=== PATIENT | female | born 1950 | race American Indian/Alaskan Native ===

== ENCOUNTER 2018-12-04 22:24 | Observation (INO) | payer MEDICARE ==
[2018-12-04] MEDS ORDERED: ONDANSETRON 4 MG/2 ML INJ IV ONE ×2 (22:48→22:49)
[2018-12-04] MEDS ORDERED: SODIUM CHLORIDE 0.9% 1000 ML 1,000 ML IV ONE (22:48)
--- NOTE | 2018-12-04 22:56 | Emergency Department Report ---
ED N/V/D HPI - General Chief complaint: Nausea/Vomiting/Diarrhea Stated complaint: N/V Time Seen by Provider: 12/04/18 22:37 Source: patient, EMS Mode of arrival: Stretcher Limitations: No Limitations - History of Present Illness Initial comments: Patient is 67 years old female with history of CHF, hypertension and substance abuse. Patient brought to the emergency room via EMS for evaluation of nausea and vomiting and shortness of breath. Patient is following with her methadone clinic. Patient stated that she missed her dose yesterday and she used heroin last night and since then she's been having nausea and vomiting and SOB. Patient initial BP was 220/104. patient denied any chest pain. MD complaint: nausea, vomiting -: This morning - Related Data Previous Rx's Medication Instructions Recorded Last Taken Type Aspirin [Aspirin BABY CHEW TAB] 81 mg PO QDAY #30 tab.chew 12/06/18 Unknown Rx Carvedilol [Coreg] 20 mg PO BID #60 tablet 12/06/18 Unknown Rx Furosemide [Lasix TAB] 50 mg PO BID #60 tablet 12/06/18 Unknown Rx Lisinopril [Zestril TAB] 50 mg PO QDAY #30 tablet 12/06/18 Unknown Rx Nicotine [Habitrol] 14 mg TD QDAY #7 patch 12/06/18 Unknown Rx amLODIPine [Norvasc] 10 mg PO QDAY #30 tablet 12/06/18 Unknown Rx hydrALAZINE [Apresoline TAB] 100 mg PO TID #90 tab 12/06/18 Unknown Rx Allergies Allergy/AdvReac Type Severity Reaction Status Date / Time No Known Allergies Allergy Unverified 12/04/18 22:48 ED Review of Systems ROS: Stated complaint: N/V Other details as noted in HPI Comment: All other systems reviewed and negative Constitutional: denies: chills, fever Respiratory: denies: cough, shortness of breath, SOB with exertion, wheezing Cardiovascular: denies: chest pain, palpitations Gastrointestinal: nausea, vomiting. denies: abdominal pain Musculoskeletal: denies: back pain Neurological: denies: headache ED Past Medical Hx - Social History Smoking Status: Current Some Day Smoker Substance Use Type: Heroin - Medications Home Medications: Home Medications Medication Instructions Recorded Confirmed Last Taken Type Aspirin [Aspirin BABY CHEW TAB] 81 mg PO QDAY #30 tab.chew 12/06/18 Unknown Rx Carvedilol [Coreg] 20 mg PO BID #60 tablet 12/06/18 Unknown Rx Furosemide [Lasix TAB] 50 mg PO BID #60 tablet 12/06/18 Unknown Rx Lisinopril [Zestril TAB] 50 mg PO QDAY #30 tablet 12/06/18 Unknown Rx Nicotine [Habitrol] 14 mg TD QDAY #7 patch 12/06/18 Unknown Rx amLODIPine [Norvasc] 10 mg PO QDAY #30 tablet 12/06/18 Unknown Rx hydrALAZINE [Apresoline TAB] 100 mg PO TID #90 tab 12/06/18 Unknown Rx ED Physical Exam - General Limitations: No Limitations General appearance: alert, in no apparent distress - Head Head exam: Present: atraumatic, normocephalic, normal inspection - Eye Eye exam: Present: normal appearance, PERRL - ENT ENT exam: Present: mucous membranes dry - Neck Neck exam: Present: normal inspection, full ROM. Absent: tenderness, meningismus, lymphadenopathy, thyromegaly - Respiratory Respiratory exam: Present: normal lung sounds bilaterally - Cardiovascular Cardiovascular Exam: Present: regular rate, normal rhythm, systolic murmur - GI/Abdominal GI/Abdominal exam: Present: soft, normal bowel sounds. Absent: distended, tenderness, guarding, rebound, rigid, organomegaly, mass, bruit, pulsatile mass, hernia - Extremities Exam Extremities exam: Present: normal inspection, full ROM. Absent: pedal edema, calf tenderness - Back Exam Back exam: Present: normal inspection, full ROM. Absent: CVA tenderness (R), CVA tenderness (L) - Neurological Exam Neurological exam: Present: alert, oriented X3, CN II-XII intact - Psychiatric Psychiatric exam: Present: normal mood - Skin Skin exam: Present: warm, intact, normal color ED Course Vital Signs 12/04/18 12/04/18 12/04/18 22:39 22:41 23:00 Temperature 98.1 F 98.1 F Pulse Rate 72 72 81 Respiratory 16 16 Rate Blood Pressure 205/89 201/102 Blood Pressure 220/104 [Left] O2 Sat by Pulse 100 100 Oximetry 12/04/18 12/04/18 12/04/18 23:38 23:43 23:49 Temperature Pulse Rate 70 70 Respiratory 15 Rate Blood Pressure 215/91 Blood Pressure 206/86 [Left] O2 Sat by Pulse 98 Oximetry 12/05/18 12/05/18 12/05/18 00:12 00:52 03:41 Temperature Pulse Rate 73 61 70 Respiratory 15 10 L Rate Blood Pressure 182/77 Blood Pressure 194/85 150/84 [Left] O2 Sat by Pulse 100 Oximetry 12/05/18 03:48 Temperature Pulse Rate 73 Respiratory 16 Rate Blood Pressure Blood Pressure 155/71 [Left] O2 Sat by Pulse 100 Oximetry ED Medical Decision Making - Lab Data Result diagrams: 12/06/18 03:41 12/06/18 03:41 - EKG Data -: EKG Interpreted by Me EKG shows normal: sinus rhythm Rate: normal - EKG Data Interpretation: no acute changes - Radiology Data Radiology results: report reviewed - Medical Decision Making Patient is 67 years old female with history of CHF, hypertension and substance abuse. Patient brought to the emergency room via EMS for evaluation of nausea and vomiting and shortness of breath. Patient is following with her methadone clinic. Patient stated that she missed her dose yesterday and she used heroin last night and since then she's been having nausea and vomiting and SOB. Patient initial BP was 220/104. patient denied any chest pain. Patient received labetalol and hydralazine. Blood pressure improved but patient still stating that she is having some shortness of breath. Chest x-ray showed bilateral pleural effusion and pulmonary edema. Patient received Lasix 40 mg IV. Initial troponin is slightly elevated but trended down. I discussed the patient with Dr. Gail Saavedra, she agreed to admit the patient to medical service. Critical Care Time: Yes Critical care time in (mins) excluding proc time.: 30 Critical care attestation.: If time is entered above; I have spent that time in minutes in the direct care of this critically ill patient, excluding procedure time. ED Disposition Clinical Impression: CHF exacerbation, Malignant hypertension, Polysubstance abuse, Nausea & vomiting Disposition: -09 OP ADMIT IP TO THIS HOSP Is pt being admited?: Yes Condition: Good
[2018-12-04 23:36] LABS: Basophils % (Auto) 0.4 % (0.0-1.8); Eosinophils % (Auto) 0.1 % (0.0-4.3); Hematocrit 40.8 % (30.3-42.9); Hemoglobin 13.2 gm/dl (10.1-14.3); Lymphocytes # (Auto) 1.2 K/mm3 (1.2-5.4); Lymphocytes % (Auto) 17.2 % (13.4-35.0); Mean Corpuscular HGB Conc 32 % (30-34); Mean Corpuscular Volume 90 fl (79-97); Monocytes # (Auto) 0.3 K/mm3 (0.0-0.8); Monocytes % (Auto) 4.8 % (0.0-7.3); Red Blood Count 4.51 M/mm3 (3.65-5.03); Red Cell Distribution Width 14.3 % (13.2-15.2)
[2018-12-04 23:38] LABS: Platelet Count 99 K/mm3 (140-440)
[2018-12-04 23:43] LABS: Alanine Aminotransferase 23 units/L (7-56); Albumin 4.3 g/dL (3.9-5); BUN/Creatinine Ratio 16; Bilirubin,Direct 0.3 mg/dL (0-0.2); Blood Urea Nitrogen 16 mg/dL (7-17); Hemolysis Index 4
[2018-12-04] MEDS ORDERED: hydrALAZINE 20 MG/1 ML INJ IV ONE (23:45)
[2018-12-04 23:53] LABS: Bacteria,Urine 1+ /HPF (Negative); Bilirubin,Urine NEG (Negative); Blood,Urine MOD (Negative); Color,Urine Straw (Yellow); Urobilinogen,Urine < 2.0 mg/dL (<2.0)
[2018-12-05] LABS: Amphetamine Screen,Urine PRESUMPTIVE NEGATIVE; Benzodiazepines Screen,Urine PRESUMPTIVE NEGATIVE; Cannabinoid Screen,Urine PRESUMPTIVE NEGATIVE
[2018-12-05 00:36] LABS: Cocaine Screen,Urine PRESUMPTIVE POSITIVE; Methadone Screen,Urine PRESUMPTIVE POSITIVE; Opiate Screen,Urine PRESUMPTIVE POSITIVE
[2018-12-05 02:18] LABS: Chol/HDL Ratio 2.92 %
[2018-12-05] MEDS ORDERED: FUROSEMIDE 40 MG/4 ML INJ IV ONE (02:33)
[2018-12-05] MEDS ORDERED: ALBUTEROL 2.5 MG/3 ML NEBU IH PRN (02:54)
[2018-12-05] MEDS ORDERED: ACETAMINOPHEN 325 MG TAB PO PRN (02:54)
[2018-12-05] MEDS ORDERED: METOCLOPRAMIDE 10 MG/2 ML INJ IV PRN (02:54)
--- NOTE | 2018-12-05 03:13 | XRay Report ---
CHEST 1 VIEW 12/05/2018 2:15 AM INDICATION / CLINICAL INFORMATION: Shortness of breath. COMPARISON: None available. FINDINGS: SUPPORT DEVICES: None. HEART / MEDIASTINUM: Normal heart size. Atherosclerosis in the thoracic aorta. LUNGS / PLEURA: No significant pulmonary or pleural abnormality. No pneumothorax. ADDITIONAL FINDINGS: No significant additional findings. IMPRESSION: 1. No acute findings. Signer Name: Rancho Ferreira MD Signed: 12/05/2018 3:08 AM Workstation Name: [employer]
--- NOTE | 2018-12-05 03:34 | History and Physical Report ---
<RONNIE HUTSON - Last Filed: 12/05/18 03:25> History of Present Illness Date of examination: 12/05/18 Date of admission: 12/05/2018 Chief complaint: Nausea and vomiting History of present illness: 67-year-old -[place] female with history of substance abuse, hypertension, CHF who presents to [facility] ED with complaints of nausea and vomiting for the past 2 days. Patient states that she has been on able to keep anything down for the past 2 days. Pt also complains of shortness of breath that began on presentation to the ED. She states, " I guess I must have been throwing up so much that I didn't realize I was short of breath before". Pt states that she has not been to the methadone clinic in the past 2 days due to her nausea and vomiting, and decided to take some heroin. She thought that she was going through withdrawal and was hoping that the heroin would help alleviate her symptoms. Denies: Cough, fever, hematemesis, or recent sick contact Past History Past Medical History: heart failure, hypertension, other (poly substance abuse) Social history: Lives alone, smoking Family history: no significant family history Medications and Allergies Allergies Allergy/AdvReac Type Severity Reaction Status Date / Time No Known Allergies Allergy Unverified 12/04/18 22:48 Home Medications Medication Instructions Recorded Confirmed Last Taken Type Carvedilol [Coreg] 20 mg PO BID 12/05/18 12/05/18 Unknown History Furosemide [Lasix TAB] 50 mg PO BID 12/05/18 12/05/18 Unknown History Lisinopril [Zestril TAB] 50 mg PO QDAY 12/05/18 12/05/18 Unknown History Active Meds: Active Medications Acetaminophen (Tylenol) 650 mg PO Q4H PRN PRN Reason: Pain MILD(1-3)/Fever >100.5/SHANE Albuterol (Proventil) 2.5 mg IH Q3HRT PRN PRN Reason: Shortness Of Breath Docusate Sodium (Colace) 100 mg PO BID JU Enoxaparin Sodium (Lovenox) 40 mg SUB-Q QDAY JU Metoclopramide HCl (Reglan) 10 mg IV Q6H PRN PRN Reason: Nausea And Vomiting Nicotine (Habitrol) 14 mg TD QDAY JU Ondansetron HCl (Zofran) 4 mg IV Q6H PRN PRN Reason: Nausea And Vomiting Sodium Chloride (Sodium Chloride Flush Syringe 10 Ml) 10 ml IV BID JU Sodium Chloride (Sodium Chloride Flush Syringe 10 Ml) 10 ml IV PRN PRN PRN Reason: LINE FLUSH Review of Systems All systems: negative Cardiovascular: shortness of breath, high blood pressure, leg edema (R>L) Gastrointestinal: nausea, vomiting Exam - Physical Exam Narrative exam: Physical exam General appearance: Present: No acute distress, drowsy but easily aroused , orie nted 3, well developed, adult -[place] female - EENT Eyes: Present: PERRL, EOM intact, ENT: hearing intact, normal dentition - Neck Neck: Present: supple, normal ROM - Respiratory Respiratory effort: Non-labored Respiratory: CTA - Cardiovascular Heart rate: 73 (bpm) Rhythm: SR, with borderline nonspecific T wave abnormalities Heart Sounds: Present: - Extremities Extremities: no ischemia, pulses intact, trace edema to RLE - Peripheral Assessment Peripheral Pulses: within normal limits - Abdominal General gastrointestinal: Soft, non-tender, normal bowel sounds - Integumentary Integumentary: Present: warm, dry, chronic edematous changes to RLE - Musculoskeletal Musculoskeletal: Able to move all extremities -Neurological Neurological: CN II-XII grossly intact - Psychiatric Psychiatric: cooperative - Constitutional Vitals: Temp Pulse Resp BP Pulse Ox 98.1 F 61 10 L 150/84 100 12/04/18 22:41 12/05/18 00:52 12/05/18 00:52 12/05/18 00:52 12/05/18 00:52 Results - Labs CBC & Chem 7: 12/04/18 22:59 12/04/18 22:59 Labs: Laboratory Last Values WBC 6.9 K/mm3 (4.5-11.0) 12/04/18 22:59 RBC 4.51 M/mm3 (3.65-5.03) 12/04/18 22:59 Hgb 13.2 gm/dl (10.1-14.3) 12/04/18 22:59 Hct 40.8 % (30.3-42.9) 12/04/18 22:59 MCV 90 fl (79-97) 12/04/18 22:59 MCH 29 pg (28-32) 12/04/18 22:59 MCHC 32 % (30-34) 12/04/18 22:59 RDW 14.3 % (13.2-15.2) 12/04/18 22:59 Plt Count 99 K/mm3 (140-440) L 12/04/18 22:59 Lymph % (Auto) 17.2 % (13.4-35.0) 12/04/18 22:59 [place] % (Auto) 4.8 % (0.0-7.3) 12/04/18 22:59 Eos % (Auto) 0.1 % (0.0-4.3) 12/04/18 22:59 Baso % (Auto) 0.4 % (0.0-1.8) 12/04/18 22:59 Lymph # 1.2 K/mm3 (1.2-5.4) 12/04/18 22:59 [place] # 0.3 K/mm3 (0.0-0.8) 12/04/18 22:59 Eos # 0.0 K/mm3 (0.0-0.4) 12/04/18 22:59 Baso # 0.0 K/mm3 (0.0-0.1) 12/04/18 22:59 Seg Neutrophils % 77.5 % (40.0-70.0) H 12/04/18 22:59 Seg Neutrophils # 5.4 K/mm3 (1.8-7.7) 12/04/18 22:59 Sodium 134 mmol/L (137-145) L 12/04/18 22:59 Potassium 3.6 mmol/L (3.6-5.0) 12/04/18 22:59 Chloride 97.8 mmol/L (98-107) L 12/04/18 22:59 Carbon Dioxide 25 mmol/L (22-30) 12/04/18 22:59 15 mmol/L 12/04/18 22:59 BUN 16 mg/dL (7-17) 12/04/18 22:59 1.0 mg/dL (0.7-1.2) 12/04/18 22:59 Estimated GFR > 60 ml/min 12/04/18 22:59 16 % 12/04/18 22:59 Glucose 114 mg/dL (65-100) H 12/04/18 22:59 Calcium 9.0 mg/dL (8.4-10.2) 12/04/18 22:59 1.10 mg/dL (0.1-1.2) 12/04/18 22:59 0.3 mg/dL (0-0.2) H 12/04/18 22:59 0.8 mg/dL 12/04/18 22:59 AST 33 units/L (5-40) 12/04/18 22:59 ALT 23 units/L (7-56) 12/04/18 22:59 104 units/L (35-129) 12/04/18 22:59 0.036 ng/mL (0.00-0.029) H D 12/05/18 01:18 NT-Pro-B Natriuret Pep 5512 pg/mL (0-900) H 12/05/18 01:18 9.0 g/dL (6.3-8.2) H 12/04/18 22:59 4.3 g/dL (3.9-5) 12/04/18 22:59 0.9 % 12/04/18 22:59 Triglycerides 90 mg/dL (2-149) 12/04/18 23:04 Cholesterol 199 mg/dL (50-199) 12/04/18 23:04 135 mg/dL (50-130) H 12/04/18 23:04 68 mg/dL (40-59) H 12/04/18 23:04 2.92 % 12/04/18 23:04 9 units/L (13-60) L 12/04/18 22:59 Straw (Yellow) 12/04/18 23:34 Clear (Clear) 12/04/18 23:34 7.0 (5.0-7.0) 12/04/18 23:34 Ur Specific Republic 1.011 (1.003-1.030) 12/04/18 23:34 100 mg/dl mg/dL (Negative) 12/04/18 23:34 Neg mg/dL (Negative) 12/04/18 23:34 Tr mg/dL (Negative) 12/04/18 23:34 Mod (Negative) 12/04/18 23:34 Neg (Negative) 12/04/18 23:34 Neg (Negative) 09/25/19 23:34 < 2.0 mg/dL (<2.0) 12/04/18 23:34 Ur Leukocyte Esterase Neg (Negative) 12/04/18 23:34 1.0 /HPF (0.0-6.0) 12/04/18 23:34 9.0 /HPF (0.0-6.0) 12/04/18 23:34 U Epithel Cells (Auto) 1.0 /HPF (0-13.0) 12/04/18 23:34 1+ /HPF (Negative) 12/04/18 23:34 Presumptive positive 12/04/18 23:34 Presumptive positive 12/04/18 23:34 Ur Barbiturates Screen Presumptive negative 12/04/18 23:34 Ur Phencyclidine Scrn Presumptive negative 12/04/18 23:34 Ur Amphetamines Screen Presumptive negative 12/04/18 23:34 U Benzodiazepines Scrn Presumptive negative 12/04/18 23:34 Presumptive positive 12/04/18 23:34 U Marijuana (THC) Screen Presumptive negative 12/04/18 23:34 Disclamer 12/04/18 23:34 - Imaging and Cardiology Imaging and Cardiology: CXR: FINDINGS: SUPPORT DEVICES: None. HEART / MEDIASTINUM: Normal heart size. Atherosclerosis in the thoracic aorta. LUNGS / PLEURA: No significant pulmonary or pleural abnormality. No pneumothorax. ADDITIONAL FINDINGS: No significant additional findings. IMPRESSION: 1. No acute findings. Assessment and Plan Assessment and plan: 67-year-old -[place] female with history of substance abuse, hypertension, CHF who presents to [facility] ED with com plaints of nausea and vomiting for the past 2 days. Hypertensive urgency -BP on admission 206/86 -Hx Hypertension -Continue to monitor BP -Resume home antihypertensive meds to optimize BP -IV antihypertensive when necessary Methadone withdrawal -Pt c/o n/v for the past 2 days -Goes to Methadone clinic, but missed last 2 appointments -Continue Supportive care -Follow up with Methadone clinic for dosage and resume treatment History of poly substance abuse -UDS positve for: opiates, cocaine, and methadone -Self reports using small amount of Heroin yesterday Tobacco abuse -Current every day smoker -Counseled for cessation -Nicotine patch when necessary DVT PPX -On Lovenox Advance Directives: No VTE prophylaxis?: Chemical Plan of care discussed with patient/family: Yes <PILLO VERDE - Last Filed: 12/05/18 05:46> History of Present Illness Date of admission: 12/05/18 02:54 Medications and Allergies Active Meds: Active Medications Acetaminophen (Tylenol) 650 mg PO Q4H PRN PRN Reason: Pain MILD(1-3)/Fever >100.5/SHANE Albuterol (Proventil) 2.5 mg IH Q3HRT PRN PRN Reason: Shortness Of Breath Aspirin (Baby Aspirin) 81 mg PO QDAY JU Docusate Sodium (Colace) 100 mg PO BID JU Enoxaparin Sodium (Lovenox) 40 mg SUB-Q QDAY JU Furosemide (Lasix) 40 mg PO BID JU Hydralazine HCl (Apresoline) 10 mg IV Q4H PRN PRN Reason: Blood Pressure Lisinopril (Zestril) 40 mg PO QDAY JU Metoclopramide HCl (Reglan) 10 mg IV Q6H PRN PRN Reason: Nausea And Vomiting Nicotine (Habitrol) 14 mg TD QDAY JU Ondansetron HCl (Zofran) 4 mg IV Q6H PRN PRN Reason: Nausea And Vomiting Potassium Chloride (K-Dur) 10 meq PO QDAY JU Sodium Chloride (Sodium Chloride Flush Syringe 10 Ml) 10 ml IV BID JU Sodium Chloride (Sodium Chloride Flush Syringe 10 Ml) 10 ml IV PRN PRN PRN Reason: LINE FLUSH Exam - Constitutional Vitals: Temp Pulse Resp BP Pulse Ox 98.1 F 73 16 155/71 100 12/04/18 22:41 12/05/18 03:48 12/05/18 03:48 12/05/18 03:48 12/05/18 03:48 Results - Labs CBC & Chem 7: 12/04/18 22:59 12/04/18 22:59 Labs: Laboratory Last Values WBC 6.9 K/mm3 (4.5-11.0) 12/04/18 22:59 RBC 4.51 M/mm3 (3.65-5.03) 12/04/18 22:59 Hgb 13.2 gm/dl (10.1-14.3) 12/04/18 22:59 Hct 40.8 % (30.3-42.9) 12/04/18 22:59 MCV 90 fl (79-97) 12/04/18 22:59 MCH 29 pg (28-32) 12/04/18 22:59 MCHC 32 % (30-34) 12/04/18 22:59 RDW 14.3 % (13.2-15.2) 12/04/18 22:59 Plt Count 99 K/mm3 (140-440) L 12/04/18 22:59 Lymph % (Auto) 17.2 % (13.4-35.0) 12/04/18 22:59 [place] % (Auto) 4.8 % (0.0-7.3) 12/04/18 22:59 Eos % (Auto) 0.1 % (0.0-4.3) 12/04/18 22:59 Baso % (Auto) 0.4 % (0.0-1.8) 12/04/18 22:59 Lymph # 1.2 K/mm3 (1.2-5.4) 12/04/18 22:59 [place]haw # 0.3 K/mm3 (0.0-0.8) 12/04/18 22:59 Eos # 0.0 K/mm3 (0.0-0.4) 12/04/18 22:59 Baso # 0.0 K/mm3 (0.0-0.1) 12/04/18 22:59 Seg Neutrophils % 77.5 % (40.0-70.0) H 12/04/18 22:59 Seg Neutrophils # 5.4 K/mm3 (1.8-7.7) 12/04/18 22:59 Sodium 134 mmol/L (137-145) L 12/04/18 22:59 Potassium 3.6 mmol/L (3.6-5.0) 12/04/18 22:59 Chloride 97.8 mmol/L (98-107) L 12/04/18 22:59 Carbon Dioxide 25 mmol/L (22-30) 12/04/18 22:59 15 mmol/L 12/04/18 22:59 BUN 16 mg/dL (7-17) 12/04/18 22:59 1.0 mg/dL (0.7-1.2) 12/04/18 22:59 Estimated GFR > 60 ml/min 12/04/18 22:59 16 % 12/04/18 22:59 Glucose 114 mg/dL (65-100) H 12/04/18 22:59 Calcium 9.0 mg/dL (8.4-10.2) 12/04/18 22:59 1.10 mg/dL (0.1-1.2) 12/04/18 22:59 0.3 mg/dL (0-0.2) H 12/04/18 22:59 0.8 mg/dL 12/04/18 22:59 AST 33 units/L (5-40) 12/04/18 22:59 ALT 23 units/L (7-56) 12/04/18 22:59 104 units/L (35-129) 12/04/18 22:59 0.036 ng/mL (0.00-0.029) H D 12/05/18 01:18 NT-Pro-B Natriuret Pep 5512 pg/mL (0-900) H 12/05/18 01:18 9.0 g/dL (6.3-8.2) H 12/04/18 22:59 4.3 g/dL (3.9-5) 12/04/18 22:59 0.9 % 12/04/18 22:59 Triglycerides 90 mg/dL (2-149) 12/04/18 23:04 Cholesterol 199 mg/dL (50-199) 12/04/18 23:04 135 mg/dL (50-130) H 12/04/18 23:04 68 mg/dL (40-59) H 12/04/18 23:04 2.92 % 12/04/18 23:04 9 units/L (13-60) L 12/04/18 22:59 Straw (Yellow) 12/04/18 23:34 Clear (Clear) 12/04/18 23:34 7.0 (5.0-7.0) 12/04/18 23:34 Ur Specific Republic 1.011 (1.003-1.030) 12/04/18 23:34 100 mg/dl mg/dL (Negative) 12/04/18 23:34 Neg mg/dL (Negative) 12/04/18 23:34 Tr mg/dL (Negative) 12/04/18 23:34 Mod (Negative) 12/04/18 23:34 Neg (Negative) 12/04/18 23:34 Neg (Negative) 12/04/18 23:34 < 2.0 mg/dL (<2.0) 12/04/18 23:34 Ur Leukocyte Esterase Neg (Negative) 12/04/18 23:34 1.0 /HPF (0.0-6.0) 12/04/18 23:34 9.0 /HPF (0.0-6.0) 12/04/18 23:34 U Epithel Cells (Auto) 1.0 /HPF (0-13.0) 12/04/18 23:34 1+ /HPF (Negative) 12/04/18 23:34 Presumptive positive 12/04/18 23:34 Presumptive positive 12/04/18 23:34 Ur Barbiturates Screen Presumptive negative 12/04/18 23:34 Ur Phencyclidine Scrn Presumptive negative 12/04/18 23:34 Ur Amphetamines Screen Presumptive negative 12/04/18 23:34 U Benzodiazepines Scrn Presumptive negative 12/04/18 23:34 Presumptive positive 12/04/18 23:34 U Marijuana (THC) Screen Presumptive negative 12/04/18 23:34 Disclamer 12/04/18 23:34 Assessment and Plan Assessment and plan: 67-year-old man with a history of hypertension, CHF comes emergency room with complaints of nausea vomiting and also complain of shortness of breath. She has a history of substance abuse on chronic methadone, recent relapse, did cocaine and heroin. Shortness of breath started while she was in the emergency room, no PND, orthopnea, dyspnea and exertion. Agree with plan as stated above, in addition check cardiac enzymes, echo, consult cardiology
[2018-12-05] MEDS ORDERED: hydrALAZINE 20 MG/1 ML INJ IV PRN (03:36)
[2018-12-05 06:42] LABS: Creatine Kinase MB 8.6 ng/mL (0.0-4.0)
[2018-12-05] MEDS: ASPIRIN 81 MG TAB CHEW PO SCH (09:21)
[2018-12-05] MEDS: POTASSIUM CHLORIDE ER 10 MEQ TAB PO SCH (09:21)
[2018-12-05] MEDS: LISINOPRIL 40 MG TAB PO SCH (09:21)
[2018-12-05] MEDS: hydrALAZINE 20 MG/1 ML INJ IV PRN (09:22)
[2018-12-05] MEDS: NICOTINE 14 MG/24 HR PATCH TD SCH (09:22)
[2018-12-05] MEDS: ENOXAPARIN 40 MG/0.4 ML INJ SUB-Q SCH (09:22)
[2018-12-05] MEDS: DOCUSATE SODIUM 100 MG CAP PO SCH ×2 (09:23→23:18)
[2018-12-05] MEDS ORDERED: carvediloL 25 MG TAB PO SCH (10:00)
[2018-12-05] MEDS ORDERED: FUROSEMIDE 40 MG TAB PO SCH (10:00)
--- NOTE | 2018-12-05 10:25 | Consultation ---
History of Present Illness Consult date: 12/05/18 Requesting physician: PILLO VERDE Consult reason: chest pain History of present illness: The pt is a 67 YO female with a history of HF, HTN, polysubstance abuse. 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 She presented with c/o nausea and vomiting for 2 days prior to arrival and SOB associated with panic attack. She believes she ate some bad food and is suffering from food poisoning. Pt states she has been receiving methadone from a methadone clinic and had not missed any doses when her nausea and vomiting began. However, due to her illness she missed 2 days methadone because she was too sick to go to the clinic. She admits to cocaine use and heroin use 3 days ago before her symptoms began. Cardiology has been consulted to evaluate chest pain, however, pt denies any occurrence of chest pain. She denies any palpitations, diaphoresis, dizziness or syncope. She denies any prior AMI or CAD. [place] records reviewed - Echo done 05/2018 showed EF 60%, mild to mod AR, mod MR, mod to severe TR, RVSP mod elevated. Past History Past Medical History: heart failure, hypertension, other (poly substance abuse) Social history: Lives alone, smoking Family history: no significant family history Medications and Allergies Allergies Allergy/AdvReac Type Severity Reaction Status Date / Time No Known Allergies Allergy Unverified 12/04/18 22:48 Home Medications Medication Instructions Recorded Confirmed Last Taken Type Carvedilol [Coreg] 20 mg PO BID 12/05/18 12/05/18 Unknown History Furosemide [Lasix TAB] 50 mg PO BID 12/05/18 12/05/18 Unknown History Lisinopril [Zestril TAB] 50 mg PO QDAY 12/05/18 12/05/18 Unknown History Active Meds: Active Medications Acetaminophen (Tylenol) 650 mg PO Q4H PRN PRN Reason: Pain MILD(1-3)/Fever >100.5/SHANE Albuterol (Proventil) 2.5 mg IH Q3HRT PRN PRN Reason: Shortness Of Breath Aspirin (Baby Aspirin) 81 mg PO QDAY [facility] Last Admin: 12/05/18 09:21 Dose: 81 mg Documented by: Docusate Sodium (Colace) 100 mg PO BID [facility] Last Admin: 12/05/18 09:23 Dose: Not Given Documented by: Enoxaparin Sodium (Lovenox) 40 mg SUB-Q QDAY [facility] Last Admin: 12/05/18 09:22 Dose: 40 mg Documented by: Furosemide (Lasix) 40 mg PO BID [facility] Last Admin: 12/05/18 09:21 Dose: 40 mg Documented by: Hydralazine HCl (Apresoline) 10 mg IV Q4H PRN PRN Reason: Blood Pressure Last Admin: 12/05/18 09:22 Dose: 10 mg Documented by: Lisinopril (Zestril) 40 mg PO QDAY [facility] Last Admin: 12/05/18 09:21 Dose: 40 mg Documented by: Metoclopramide HCl (Reglan) 10 mg IV Q6H PRN PRN Reason: Nausea And Vomiting Nicotine (Habitrol) 14 mg TD QDAY [facility] Last Admin: 12/05/18 09:22 Dose: Not Given Documented by: Ondansetron HCl (Zofran) 4 mg IV Q6H PRN PRN Reason: Nausea And Vomiting Potassium Chloride (K-Dur) 10 meq PO QDAY [facility] Last Admin: 12/05/18 09:21 Dose: 10 meq Documented by: Sodium Chloride (Sodium Chloride Flush Syringe 10 Ml) 10 ml IV BID [facility] Last Admin: 12/05/18 09:23 Dose: 10 ml Documented by: Sodium Chloride (Sodium Chloride Flush Syringe 10 Ml) 10 ml IV PRN PRN PRN Reason: LINE FLUSH Review of Systems Constitutional: no weight loss, no weight gain, no fever, no chills, no sweats Ears, nose, mouth and throat: no ear pain, no nose pain, no sinus pressure, no sinus pain Cardiovascular: shortness of breath, high blood pressure, no chest pain, no orthopnea, no palpitations, no rapid/irregular heart beat, no edema, no syncope, no lightheadedness, no dyspnea on exertion, no paroxysmal nocturnal dyspnea, no leg edema Respiratory: no cough, no shortness of breath, no dyspnea on exertion, no con gestion, no wheezing, no pain on inspiration Gastrointestinal: nausea, vomiting, no abdominal pain, no diarrhea, no constipation, no change in bowel habits, no hematemesis, no coffee ground emesis Genitourinary Female: no pelvic pain, no flank pain, no dysuria, no urinary frequency, no urgency Musculoskeletal: no neck stiffness, no neck pain, no shooting arm pain, no arm numbness/tingling, no low back pain, no shooting leg pain Integumentary: no rash, no pruritis, no redness, no sores, no wounds Neurological: no head injury, no paralysis, no weakness, no parathesias, no numbness, no tingling, no seizures, no syncope Psychiatric: no anxiety Endocrine: no cold intolerance, no heat intolerance Hematologic/Lymphatic: no easy bruising, no easy bleeding Allergic/Immunologic: no urticaria, no wheezing Physical Examination Vital Signs Temp Pulse Resp BP Pulse Ox 98.1 F 72 16 220/104 100 12/04/18 22:39 12/04/18 22:39 12/04/18 22:39 12/04/18 22:39 12/04/18 22:39 General appearance: no acute distress HEENT: Positive: PERRL, Normocephaly, Mucus Membranes Moist Neck: Positive: neck supple, trachea midline Cardiac: Positive: Reg Rate and Rhythm, S1/S2 Lungs: Positive: Decreased Breath Sounds Neuro: Positive: Grossly Intact Abdomen: Negative: Tender Skin: Negative: Rash Musculoskeletal: No Pain Extremities: Absent: edema Results 12/04/18 22:59 12/04/18 22:59 Cardiac Enzymes 12/04/18 12/05/18 Range/Units 22:59 05:40 AST 33 (5-40) units/L CK-MB (CK-2) 8.6 H (0.0-4.0) ng/mL Lipids 12/04/18 Range/Units 23:04 Triglycerides 90 (2-149) mg/dL Cholesterol 199 (50-199) mg/dL HDL Cholesterol 68 H (40-59) mg/dL Cholesterol/HDL Ratio 2.92 % CBC 12/04/18 Range/Units 22:59 WBC 6.9 (4.5-11.0) K/mm3 RBC 4.51 (3.65-5.03) M/mm3 Hgb 13.2 (10.1-14.3) gm/dl Hct 40.8 (30.3-42.9) % Plt Count 99 L (140-440) K/mm3 Lymph # 1.2 (1.2-5.4) K/mm3 [place] # 0.3 (0.0-0.8) K/mm3 Eos # 0.0 (0.0-0.4) K/mm3 Baso # 0.0 (0.0-0.1) K/mm3 Comprehensive Metabolic Panel 12/04/18 Range/Units 22:59 Sodium 134 L (137-145) mmol/L Potassium 3.6 (3.6-5.0) mmol/L Chloride 97.8 L (98-107) mmol/L Carbon Dioxide 25 (22-30) mmol/L BUN 16 (7-17) mg/dL Creatinine 1.0 (0.7-1.2) mg/dL Glucose 114 H (65-100) mg/dL Calcium 9.0 (8.4-10.2) mg/dL Direct Bilirubin 0.3 H (0-0.2) mg/dL Indirect Bilirubin 0.8 mg/dL AST 33 (5-40) units/L ALT 23 (7-56) units/L Alkaline Phosphatase 104 (35-129) units/L Total Protein 9.0 H (6.3-8.2) g/dL Albumin 4.3 (3.9-5) g/dL - Imaging and Cardiology Echo: pending, report reviewed (Echo done 05/2018 showed EF 60%, mild to mod AR, mod MR, mod to severe TR, RVSP mod elevated. ) EKG: report reviewed, image reviewed EKG interpretations - Telemetry EKG Rhythm: Sinus Rhythm - EKG Sinus rhythms and dysrhythmias: sinus rhythm Assessment and Plan Echo reviewed - EF 50-55%, impaired relaxation, LA and RA dilated, RV mildly dilated with normal systolic function, mild to mod AR, mild TR, RVSP 36mmHg. Pt denies any occurrence of chest pain. ECG with no acute ischemic changes. Steven noted to be minimally elevated, currently nonspecific in setting of hypertensive urgency. No plans for additional cardiac w/u on this admission - can consider stress test as OP. Optimize BPs - hydralazine initiated today per primary. Pt's home medication regimen included coreg, however, would avoid BB in setting of active cocaine use. The patient has been seen in conjunction with Dr. Presley who agrees with the assessment and plan of care. - Patient Problems (1) Nausea & vomiting Current Visit: Yes Status: Acute (2) Polysubstance abuse Current Visit: Yes Status: Chronic (3) Hypertensive urgency Current Visit: Yes Status: Acute (4) Elevated troponin Current Visit: Yes Status: Acute
[2018-12-05] MEDS: ONDANSETRON 4 MG/2 ML INJ IV PRN ×2 (11:51→19:11)
[2018-12-05] MEDS ORDERED: METHADONE 10 MG TAB PO ONE (12:00)
[2018-12-05 12:19] LABS: Creatine Kinase MB 9.9 ng/mL (0.0-4.0)
--- NOTE | 2018-12-05 14:17 | Event Note ---
Date: 12/05/18 Patient seen and examined no c/o chest pain UDS +ve for cocaine and opioids She admits that she tool heroine and cocaine On methadone 80mg per day - restarted follow 2d echo, follow BP, adjust BP meds possible d/c in the am if SBP stable
[2018-12-05] MEDS: hydrALAZINE 100 MG TAB PO SCH ×2 (14:48→21:43)
[2018-12-06] MEDS: hydrALAZINE 20 MG/1 ML INJ IV PRN (02:47)
[2018-12-06 04:57] LABS: Basophils % (Auto) 0.1 % (0.0-1.8); Eosinophils % (Auto) 0.1 % (0.0-4.3); Hematocrit 45.5 % (30.3-42.9); Hemoglobin 14.9 gm/dl (10.1-14.3); Lymphocytes # (Auto) 1.6 K/mm3 (1.2-5.4); Lymphocytes % (Auto) 17.3 % (13.4-35.0); Mean Corpuscular HGB Conc 33 % (30-34); Mean Corpuscular Volume 90 fl (79-97); Monocytes # (Auto) 0.7 K/mm3 (0.0-0.8); Monocytes % (Auto) 7.9 % (0.0-7.3); Platelet Count 120 K/mm3 (140-440); Red Blood Count 5.05 M/mm3 (3.65-5.03); Red Cell Distribution Width 14.5 % (13.2-15.2)
[2018-12-06 05:16] LABS: Calcium 8.9 mg/dL (8.4-10.2)
[2018-12-06] MEDS ORDERED: FUROSEMIDE 40 MG TAB PO SCH (10:00)
[2018-12-06] MEDS ORDERED: amLODIPine 10 MG TAB PO SCH (10:00)
--- NOTE | 2018-12-06 10:18 | Progress Note ---
Assessment and Plan Pt denies any occurrence of chest pain. ECG with no acute ischemic changes. Steven noted to be minimally elevated, currently nonspecific in setting of hypertensive urgency. No plans for additional cardiac w/u on this admission - can consider stress test as OP. Optimize BPs - add amlodipine. Pt noted to have elevated BUN and Cr this AM. Initiate IVF and f/u BMP in AM. The patient has been seen in conjunction with Dr. Presley who agrees with the assessment and plan of care. - Patient Problems (1) Nausea & vomiting Current Visit: Yes Status: Acute (2) Polysubstance abuse Current Visit: Yes Status: Chronic (3) Hypertensive urgency Current Visit: Yes Status: Acute (4) Elevated troponin Current Visit: Yes Status: Acute Subjective Date of service: 12/06/18 Principal diagnosis: n/v;htn Interval history: pt resting in bed, no current complaints. tele reviewed - in SR, no acute events overnight. Objective Last Vital Signs Temp 98.3 F 12/06/18 07:53 Pulse 76 12/06/18 07:53 Resp 20 12/06/18 07:53 BP 177/72 12/06/18 07:53 Pulse Ox 94 12/06/18 07:53 - Physical Examination General: No Apparent Distress HEENT: Positive: PERRL, Normocephaly, Mucus Membranes Moist Neck: Positive: neck supple, trachea midline Cardiac: Positive: Reg Rate and Rhythm, S1/S2 Lungs: Positive: Decreased Breath Sounds Neuro: Positive: Grossly Intact Abdomen: Negative: Tender Skin: Negative: Rash Musculoskeletal: No Pain Extremities: Absent: edema - Labs and Meds Cardiac Enzymes 12/05/18 Range/Units 11:05 CK-MB (CK-2) 9.9 H (0.0-4.0) ng/mL CBC 12/06/18 Range/Units 03:41 WBC 9.1 (4.5-11.0) K/mm3 RBC 5.05 H (3.65-5.03) M/mm3 Hgb 14.9 H (10.1-14.3) gm/dl Hct 45.5 H (30.3-42.9) % Plt Count 120 L (140-440) K/mm3 Lymph # 1.6 (1.2-5.4) K/mm3 [place] # 0.7 (0.0-0.8) K/mm3 Eos # 0.0 (0.0-0.4) K/mm3 Baso # 0.0 (0.0-0.1) K/mm3 Comprehensive Metabolic Panel 12/06/18 Range/Units 03:41 Sodium 137 (137-145) mmol/L Potassium 3.1 L (3.6-5.0) mmol/L Chloride 95.0 L (98-107) mmol/L Carbon Dioxide 21 L (22-30) mmol/L BUN 35 H (7-17) mg/dL Creatinine 1.6 H D (0.7-1.2) mg/dL Glucose 116 H (65-100) mg/dL Calcium 8.9 (8.4-10.2) mg/dL - Imaging and Cardiology EKG: report reviewed, image reviewed Echo: report reviewed (EF 50-55%, impaired relaxation, LA and RA dilated, RV mildly dilated with normal systolic function, mild to mod AR, mild TR, RVSP 36mmHg. Echo done 05/2018 showed EF 60%, mild to mod AR, mod MR, mod to severe TR, RVSP mod elevated. ) - Telemetry EKG Rhythm: Sinus Rhythm - EKG Sinus rhythms and dysrhythmias: sinus rhythm
[2018-12-06] MEDS ORDERED: SODIUM CHLORIDE 0.9% 1000 ML 1,000 ML IV SCH (11:00)
[2018-12-06] MEDS: ASPIRIN 81 MG TAB CHEW PO SCH (11:19)
[2018-12-06] MEDS: POTASSIUM CHLORIDE ER 10 MEQ TAB PO SCH (11:19)
[2018-12-06] MEDS: LISINOPRIL 40 MG TAB PO SCH (11:19)
[2018-12-06] MEDS: ENOXAPARIN 40 MG/0.4 ML INJ SUB-Q SCH (11:20)
[2018-12-06] MEDS: DOCUSATE SODIUM 100 MG CAP PO SCH (11:22)
[2018-12-06] MEDS: NICOTINE 14 MG/24 HR PATCH TD SCH (11:22)
[2018-12-06] MEDS: hydrALAZINE 100 MG TAB PO SCH (11:29)
--- NOTE | 2018-12-06 12:27 | Discharge Summary ---
Providers - Providers Date of Admission: 12/05/18 02:54 Date of discharge: 12/06/18 Attending physician: CAROLINA BERRIOS 12/05/18 05:02 Consult to Physician [CONS] Routine Comment: Consulting Provider: CHRISTINA LEIVA Physician Instructions: Reason For Exam: cp Primary care physician: [employer] Hospitalization Condition: Good Hospital course: Patient presents with nausea and vomiting after binge with cocaine, oxycodone, heroin and methadone. Patient brought in found to be hypertensive. States she has not followed up with somebody for hypertension in some time. We'll discharge with calcium channel jasvir. She had workup echocardiogram which showed ejection fraction of 55%. He was stable chest pain no shortness of breath. No further cardiac workup needed. Patient stable for discharge. Discussed dangers of alcohol polysubstance abuse. Patient verbalizes understanding. Disposition: DC- TO HOME OR SELFCARE - Discharge Diagnoses (1) Hypertensive urgency Status: Acute Comment: Amlodipine and lisinopril. Would add hydralazine 25 mg twice a day. (2) Nausea & vomiting Status: Resolved (3) Polysubstance abuse Status: Chronic Comment: Patient has been informed about different treatment options for polysubstance abuse Core Measure Documentation - Palliative Care Palliative Care/ Comfort Measures: Not Applicable - Core Measures Any of the following diagnoses?: none Exam - Constitutional Vitals: Temp Pulse Resp BP Pulse Ox 98.3 F 76 20 177/72 94 12/06/18 07:53 12/06/18 07:53 12/06/18 07:53 12/06/18 07:53 12/06/18 07:53 General appearance: Present: no acute distress, well-nourished - EENT Eyes: Present: PERRL ENT: hearing intact, clear oral mucosa - Neck Neck: Present: supple, normal ROM - Respiratory Respiratory effort: normal Respiratory: bilateral: CTA - Cardiovascular Heart Sounds: Present: S1 & S2. Absent: rub, click - Extremities Extremities: pulses symmetrical, No edema Peripheral Pulses: within normal limits - Abdominal General gastrointestinal: Present: soft, non-tender, non-distended, normal bowel sounds Female genitourinary: Present: normal - Integumentary Integumentary: Present: clear, warm, dry - Musculoskeletal Musculoskeletal: gait normal, strength equal bilaterally - Psychiatric Psychiatric: appropriate mood/affect, intact judgment & insight - Neurologic Neurologic: CNII-XII intact, moves all extremities Plan Activity: other Weight Bearing Status: Full Weight Bearing Diet: regular Special Instructions: record daily BP diary Follow up with: PRIMARY CARE, [Primary Care Provider] - 3-5 Days Prescriptions: hydrALAZINE [Apresoline TAB] 100 mg PO TID #90 tab Aspirin [Aspirin BABY CHEW TAB] 81 mg PO QDAY #30 tab.chew Carvedilol [Coreg] 20 mg PO BID #60 tablet Nicotine [Habitrol] 14 mg TD QDAY #7 patch Furosemide [Lasix TAB] 50 mg PO BID #60 tablet amLODIPine [Norvasc] 10 mg PO QDAY #30 tablet Lisinopril [Zestril TAB] 50 mg PO QDAY #30 tablet
[2018-12-06 12:51] VITALS: BP 188/74
[2018-12-06] MEDS ORDERED: hydrALAZINE 20 MG/1 ML INJ IV ONE (13:26)
== END 2018-12-06 14:35 | disposition home or self-care (01) ==
LOC: ED 22:24 → INTOOBSV 12-05 02:54 → 4A 12-05 02:54
PROVIDERS: ADMIT Internal Medicine; ATTEND Internal Medicine
DX: I16.0 Hypertensive urgency (principal); I11.0 Hypertensive heart disease with heart failure; I50.9 Heart failure, unspecified; F11.23 Opioid dependence with withdrawal; R11.2 Nausea with vomiting, unspecified; R74.8 Abnormal levels of other serum enzymes; F17.200 Nicotine dependence, unspecified, uncomplicated; Z79.82 Long term (current) use of aspirin
CPT/HCPCS: 36415; 71045; 80048; 80061; 80076; 80307; 81001; 82550; 82553; 83690; 83880; 84484; 85025; 93005; 93010; 93306; 96361; 96372; 96374; 96375; 96376; 99291; G0378; J0360; J1650; J1940; J2405; J2765; J7030

== ENCOUNTER 2021-12-05 10:00 | Emergency (ER) | payer MEDICARE ==
[2021-12-05 10:40] VITALS: BP 188/79
[2021-12-05 11:39] LABS: Basophils % (Auto) 0.6 % (0.0-1.8); Eosinophils # (Auto) 0.2 K/mm3 (0.0-0.4); Hematocrit 32.6 % (30.3-42.9); Hemoglobin 10.8 gm/dl (10.1-14.3); Lymphocytes # (Auto) 1.3 K/mm3 (1.2-5.4); Lymphocytes % (Auto) 38.3 % (13.4-35.0); Mean Corpuscular HGB Conc 33 % (30-34); Mean Corpuscular Volume 90 fl (79-97); Monocytes # (Auto) 0.3 K/mm3 (0.0-0.8); Monocytes % (Auto) 9.7 % (0.0-7.3); Red Blood Count 3.64 M/mm3 (3.65-5.03); Red Cell Distribution Width 13.5 % (13.2-15.2)
--- NOTE | 2021-12-05 11:53 | Cat Scan Report ---
CT head/brain wo con INDICATION / CLINICAL INFORMATION: 70 years Female; Stroke symptoms. TECHNIQUE: Routine CT head without contrast. All CT scans at this location are performed using CT dos e reduction for ALARA by means of automated exposure control. COMPARISON: None. FINDINGS: BRAIN / INTRACRANIAL CONTENTS: No acute hemorrhage, mass effect, midline shift, hydrocephalus, or acu te, large territorial infarct. No signs of significant atrophy or chronic infarct. Minimal, nonspecif ic white matter disease suggested. CRANIOCERVICAL JUNCTION: No significant abnormality. ORBITS: No significant abnormality of visualized orbits. SINUSES / MASTOIDS: Visualized paranasal sinuses and mastoid air cells are essentially clear. ADDITIONAL FINDINGS: None. IMPRESSION: 1. No focal mass, hemorrhage, hydrocephalus, or acute, large territorial infarct. Signer Name: To Cooper MD, III Signed: 12/05/2021 11:49 AM Workstation Name: [id number][id number]
[2021-12-05 12:21] LABS: Creatine Kinase MB 6.1 ng/mL (0.0-4.0); Platelet Count 88 K/mm3 (140-440)
[2021-12-05 12:24] LABS: Albumin 3.9 g/dL (3.9-5); Calcium 9.2 mg/dL (8.4-10.2)
[2021-12-05 12:28] LABS: INR 0.98 (0.87-1.13)
[2021-12-05 12:35] LABS: Chol/HDL Ratio 4.58 %
--- NOTE | 2021-12-05 13:56 | Emergency Department Report ---
ED General Adult HPI - General Chief complaint: Neuro Symptoms/Deficit Stated complaint: FACE DROOP PUI?: No Time Seen by Provider: 12/05/21 10:56 Source: patient, EMS Mode of arrival: Stretcher Limitations: No Limitations - History of Present Illness Initial comments: PATIENT PRESENTS WITH A LEFT SIDE FACIAL DROOP SINCE 12/04/21 0800. EXTREMITIES ARE ALL WNL. no UL or LE weakness -: Sudden, days(s) (24) Location: face Severity scale (0 -10): 0 Consistency: constant Improves with: none Worsens with: none Associated Symptoms: denies: denies other symptoms, confusion, chest pain Treatments Prior to Arrival: none - Related Data Previous Rx's Medication Instructions Recorded Last Taken Type Aspirin [Aspirin BABY CHEW TAB] 81 mg PO QDAY #30 tab.chew 12/06/18 Unknown Rx Furosemide [Lasix TAB] 50 mg PO BID #60 tablet 12/06/18 Unknown Rx Nicotine [Habitrol] 14 mg TD QDAY #7 patch 12/06/18 Unknown Rx amLODIPine 10 mg PO QDAY #30 tablet 12/06/18 Unknown Rx carvediloL [Coreg] 20 mg PO BID #60 tablet 12/06/18 Unknown Rx hydrALAZINE [Apresoline TAB] 100 mg PO TID #90 tab 12/06/18 Unknown Rx lisinopriL [Zestril TAB] 50 mg PO QDAY #30 tablet 12/06/18 Unknown Rx Allergies Allergy/AdvReac Type Severity Reaction Status Date / Time No Known Allergies Allergy Unverified 12/05/21 10:11 ED Review of Systems ROS: Stated complaint: FACE DROOP Other details as noted in HPI Constitutional: denies: chills, fever Eyes: denies: eye pain, eye discharge, vision change ENT: denies: ear pain, throat pain Respiratory: denies: cough, shortness of breath, wheezing Cardiovascular: denies: chest pain, palpitations Endocrine: no symptoms reported Gastrointestinal: denies: abdominal pain, nausea, diarrhea Genitourinary: denies: urgency, dysuria, discharge Musculoskeletal: denies: back pain, joint swelling, arthralgia Skin: denies: rash, lesions Neurological: denies: headache, weakness, paresthesias Psychiatric: denies: anxiety, depression Hematological/Lymphatic: denies: easy bleeding, easy bruising ED Past Medical Hx - Past Medical History Hx Hypertension: Yes Hx Congestive Heart Failure: Yes - Social History Smoking Status: Never Smoker - Medications Home Medications: Home Medications Medication Instructions Recorded Confirmed Last Taken Type Aspirin [Aspirin BABY CHEW TAB] 81 mg PO QDAY #30 tab.chew 12/06/18 Unknown Rx Furosemide [Lasix TAB] 50 mg PO BID #60 tablet 12/06/18 Unknown Rx Nicotine [Habitrol] 14 mg TD QDAY #7 patch 12/06/18 Unknown Rx amLODIPine 10 mg PO QDAY #30 tablet 12/06/18 Unknown Rx carvediloL [Coreg] 20 mg PO BID #60 tablet 12/06/18 Unknown Rx hydrALAZINE [Apresoline TAB] 100 mg PO TID #90 tab 12/06/18 Unknown Rx lisinopriL [Zestril TAB] 50 mg PO QDAY #30 tablet 12/06/18 Unknown Rx ED Physical Exam - General Limitations: No Limitations General appearance: alert, other (facial droop noted ) - Head Head exam: Present: atraumatic, normocephalic - Eye Eye exam: Present: normal appearance - ENT ENT exam: Present: mucous membranes moist - Neck Neck exam: Present: normal inspection - Respiratory Respiratory exam: Present: normal lung sounds bilaterally. Absent: respiratory distress - Cardiovascular Cardiovascular Exam: Present: regular rate, normal rhythm. Absent: systolic murmur, diastolic murmur, rubs, gallop - GI/Abdominal GI/Abdominal exam: Present: soft, normal bowel sounds - Extremities Exam Extremities exam: Present: normal inspection - Back Exam Back exam: Present: normal inspection - Neurological Exam Neurological exam: Present: alert, oriented X3 - Expanded Neurological Exam Expanded Patient oriented to: Present: person, place, time Speech: Present: fluid speech Cranial nerves: Facial Sensation: Abnormal Left, Facial Palsy without Forehead Movement: Abnormal Left Best Eye Response ([place]): (4) open spontaneously Best Motor Response ([place]): (6) obeys commands Best Verbal Response ([place]): (5) oriented [place] Total: 15 - Psychiatric Psychiatric exam: Present: normal affect, normal mood - Skin Skin exam: Present: warm, dry, intact, normal color. Absent: rash ED Course Vital Signs 12/05/21 12/05/21 10:01 10:28 Temperature 98.2 F 97.8 F Pulse Rate 67 52 L Respiratory 18 12 Rate Blood Pressure 188/79 Blood Pressure 189/90 188/79 [Left] O2 Sat by Pulse 100 96 Oximetry ED Medical Decision Making - Lab Data Result diagrams: 12/05/21 11:14 12/05/21 11:14 - Radiology Data Radiology results: report reviewed, image reviewed Critical care attestation.: If time is entered above; I have spent that time in minutes in the direct care of this critically ill patient, excluding procedure time. ED Disposition Clinical Impression: Facial palsy Disposition: 01 HOME / SELF CARE / HOMELESS Is pt being admited?: No Does the pt Need Aspirin: No Condition: Stable Instructions: [place] Palsy, Adult Referrals: PRIMARY CARE, [Primary Care Provider] - 3-5 Days
== END 2021-12-05 16:08 | disposition home or self-care (01) ==
LOC: ED 10:00
DX: G51.0 Bell's palsy (principal); R79.1 Abnormal coagulation profile; I10 Essential (primary) hypertension; Z79.899 Other long term (current) drug therapy; Z79.82 Long term (current) use of aspirin
CPT/HCPCS: 36415; 70450; 80053; 80061; 82550; 82553; 84484; 85025; 85610; 93005; 99284